=== PATIENT | female | born 1970 | race Caucasian/White ===

== ENCOUNTER 2019-02-06 19:58 | Emergency (ER) | payer BC, OTHER ==
[~2019-02-06] VITALS: Ht 162.6 cm; Wt 122.5 kg
[~2019-02-06 19:58] MED LIST: IBUP-1060 PO
[2019-02-06 20:40] VITALS: BP 162/97
[2019-02-06] MEDS ORDERED: TRIA15OI TP (21:26)
[2019-02-06] MEDS ORDERED: SULF1TAB23 PO (21:26)
[2019-02-06] MEDS ORDERED: HYDR25TA PO (21:26)
--- NOTE | 2019-02-06 21:27 | PHYS DOC ---
Past Medical History Past Medical History: Diverticulitis, GERD, Seizure Additional Past Medical Histor: chronic back pain Past Surgical History: Cholecystectomy, Hysterectomy, Other Additional Past Surgical Histo: multiple hernia repairs, surgery on right foot and ankle Alcohol Use: None Drug Use: None Adult General Chief Complaint Chief Complaint: SKIN PROBLEM HPI HPI Patient is a 48 year old female who presents to the ED today complaining of a rash on the left arm region, chest that began 2 weeks ago. Patient denies any cause for this rash. Review of Systems Review of Systems Constitutional: Denies fever or chills [] Musculoskeletal: Denies back pain or joint pain [] Integument: Reports rash Neurologic: Denies headache, focal weakness or sensory changes [] All other systems were reviewed and found to be within normal limits, except as documented in this note. Allergies Allergies Allergies Coded Allergies Type Severity Reaction Last Updated Verified cyclobenzaprine Allergy Intermediate 10/08/15 Yes diazepam Allergy Intermediate Anxiety 10/08/15 Yes morphine Allergy Intermediate Swelling 10/08/15 Yes tramadol Allergy Intermediate 10/08/15 Yes Physical Exam Physical Exam Constitutional: Well developed, well nourished, no acute distress, non-toxic appearance. [] Skin: Left exterior axilla area with crusty dry erythematous region, no drainage, a couple papular erythematous chest and the right forearm. The left axilla rash appears infected, no drainage. Back: No tenderness, no CVA tenderness. [] Extremities: No tenderness, no cyanosis, no clubbing, ROM intact, no edema. [] Neurologic: Alert and oriented X 3, normal motor function, normal sensory function, no focal deficits noted. [] Psychologic: Affect normal, judgement normal, mood normal. [] Current Patient Data Vital Signs Vital Signs Date Time Temp Pulse Resp B/P (MAP) Pulse Ox O2 Delivery O2 Flow Rate FiO2 02/06/19 20:40 98.0 97 20 162/97 (118) 96 Room Air 98.0 EKG EKG [] Radiology/Procedures Radiology/Procedures [] Course & Med Decision Making Course & Med Decision Making Pertinent Labs and Imaging studies reviewed. (See chart for details) This is a 48-year-old female patient who presents to the ED today with an infec duran rash. OB discharged with Bactrim, triamcinolone cream, and Atarax. Follow-up with primary care doctor in 1-2 weeks. Dragon Disclaimer Dragon Disclaimer This electronic medical record was generated, in whole or in part, using a voice recognition dictation system. Departure Departure Impression: Primary Impression: Skin infection Additional Impression: Contact dermatitis Disposition: 01 HOME, SELF-CARE Condition: STABLE Referrals: UNKNOWN PCP NAME (PCP) TOMAS BRITO MD follw up in one week Patient Instructions: Contact Dermatitis, [id number], Skin Infections Additional Instructions: You have an infected a rash, we put you on antibiotics, ensure you complete them. Use the prescribed cream as ordered. Follow-up with your doctor in 1-2 weeks. Scripts Hydroxyzine Hcl (HYDROXYZINE HCL) 25 Mg Tablet 1 TAB PO TID, #30 TAB 0 Refills Prov: CALEB SILVERMAN APRN 02/06/19 Sulfamethoxazole/Trimethoprim (BACTRIM 400-80 MG TABLET) 1 Each Tablet 1 TAB PO BID, #20 TAB Prov: CALEB SILVERMAN APRN 02/06/19 Triamcinolone Acetonide (TRIAMCINOLONE ACETONIDE 0.1% OINT) 15 Gm Oint...g. 1 ERICKA TP BID for WOUND CARE, #1 TUBE Prov: CALEB SILVERMAN APRN 02/06/19 Problem Qualifiers Additional Impression: Contact dermatitis Contact dermatitis type: unspecified Contact dermatitis trigger: unspecified trigger Qualified Codes: L25.9 - Unspecified contact dermatitis, unspecified cause CALEB SILVERMAN APRN Feb 06, 2019 21:27
== END 2019-02-06 21:40 | disposition home or self-care (01) ==
LOC: ER 19:58
DX: L25.9 Unspecified contact dermatitis, unspecified cause (principal); L08.89 Other specified local infections of the skin and subcutaneous tissue; K21.9 Gastro-esophageal reflux disease without esophagitis; G89.29 Other chronic pain; Z88.5 Allergy status to narcotic agent; Z88.6 Allergy status to analgesic agent; Z88.8 Allergy status to other drugs, medicaments and biological substances
CPT/HCPCS: 99283